=== PATIENT | male | born 1990 | race Caucasian/White ===

== ENCOUNTER 2016-11-06 20:01 | Emergency (ER) | payer SELFPAY ==
[~2016-11-06] VITALS: Ht 167.6 cm; Wt 82.0 kg
[2016-11-06 22:03] VITALS: BP 117/70
== END 2016-11-07 00:20 | disposition left against medical advice (07) ==
LOC: ER 20:01
DX: Z53.21 Procedure and treatment not carried out due to patient leaving prior to being seen by health care provider (principal)

== ENCOUNTER 2019-02-13 14:59 | Emergency (ER) | payer SELFPAY ==
[~2019-02-13] VITALS: Ht 170.2 cm; Wt 75.0 kg
[2019-02-13] MEDS ORDERED: SODIUM CHLORIDE 0.9% 1,000 ML IV ONE (15:55)
[2019-02-13] MEDS ORDERED: ONDANSETRON HCL 4MG/2ML INJ IV ONE (16:00)
[2019-02-13] MEDS ORDERED: MORPHINE SULFATE 4 MG/ML CPJ (NOT FOR IM USE) IV ONE (16:00)
[2019-02-13] MEDS ORDERED: VANCOMYCIN 1 G PREMIX 200 ML IV ONE (16:00)
[2019-02-13] MEDS ORDERED: BACITRACIN ZINC OINT UDPKT TOP ONE (16:00)
[2019-02-13] MEDS ORDERED: TETANUS, DIPHTHERIA, PERTUSSIS VAC/PF 0.5ML (>7YR OLD) IM ONE (16:00)
[2019-02-13] MEDS ORDERED: PIPERACILLIN/TAZ 3.375G PREMIX 50 ML IV ONE (16:00)
[2019-02-13] MEDS ORDERED: KETOROLAC 30MG/ML VIAL IV ONE (16:00)
[2019-02-13] MEDS ORDERED: LIDOCAINE 1%/EPI 1:100,000 10 ML VIAL IJ ONE (16:00)
[2019-02-13 16:11] LABS: BASOPHILS % 0.4 % (0.0-2.0); EOSINOPHILS % 0.9 % (0.0-5.0); HEMATOCRIT. 45.2 % (42.0-52.0); HEMOGLOBIN. 15.3 g/dL (14.0-18.0); MEAN CORPUSCULAR HEMOGLOBIN 31.9 pg (28.0-32.0); MEAN CORPUSCULAR VOLUME 94.1 fL (80.0-94.0); MEAN PLATELET VOLUME 8.7 fl (7.4-10.4); MONOCYTES % 10.4 % (2.0-8.0); NEUTROPHILS % 78.3 % (40.0-76.0); PLATELET 219 x1000/uL (130-400); RED CELL DISTRIBUTION WIDTH 13.4 % (11.6-14.6)
[2019-02-13 16:12] LABS: CHLORIDE 105 mEq/L (98-107)
[2019-02-13] MEDS ORDERED: LIDOCAINE HCL/EPINEPHRINE 1%-EPI 1:100,000 20 ML VIAL INFIL NR (16:15)
[2019-02-13] MEDS: SODIUM CHLORIDE 0.9% 1000ML BAG (SEPSIS BOLUS) IV ONE ×2 (16:21→16:49)
[2019-02-13] MEDS ORDERED: PIPERACILLIN/TAZOBACTAM 3.375 G in DEXT 5% WATER 100 ML IV NR (16:45)
[2019-02-13 22:20] VITALS: BP 112/69
== END 2019-02-13 22:21 | disposition home or self-care (01) ==
LOC: ER 14:59
DX: L02.415 Cutaneous abscess of right lower limb (principal); L03.115 Cellulitis of right lower limb
CPT/HCPCS: 10060; 36415; 80053; 85025; 87040; 87086; 90471; 90715; 93005; 96365; 96366; 96368; 96375; 99284; J1885; J2270; J2543; J3370; J3490; J7030; J7060; Z7610

== ENCOUNTER 2019-03-21 22:39 | Emergency (ER) | payer SELFPAY ==
[~2019-03-21] VITALS: Ht 167.6 cm; Wt 78.0 kg
[2019-03-22 01:30] VITALS: BP 129/72
[2019-03-22] MEDS ORDERED: CLINDAMYCIN 600 MG in SODIUM CHLORIDE 0.9% 50 ML IV NR (01:30)
[2019-03-22] MEDS ORDERED: CLINDAMYCIN 600 MG in DEXTROSE 5% WATER 50 ML IV ONE (01:30)
[2019-03-22] MEDS ORDERED: BACITRACIN 15GM TUBE TOP ONE (01:30)
[2019-03-22 01:37] LABS: CHLORIDE 106 mEq/L (98-107)
[2019-03-22 01:38] LABS: BASOPHILS % 0.7 % (0.0-2.0); EOSINOPHILS % 2.1 % (0.0-5.0); HEMATOCRIT. 44.4 % (42.0-52.0); HEMOGLOBIN. 15.1 g/dL (14.0-18.0); LYMPHOCYTES % 9.7 % (20.0-50.0); MEAN CORPUSCULAR HEMOGLOBIN 31.2 pg (28.0-32.0); MEAN CORPUSCULAR VOLUME 92.1 fL (80.0-94.0); MEAN PLATELET VOLUME 8.1 fl (7.4-10.4); MONOCYTES % 8.6 % (2.0-8.0); NEUTROPHILS % 78.9 % (40.0-76.0); PLATELET 285 x1000/uL (130-400); RED BLOOD CELL COUNT 4.82 mill/uL (4.7-6.1); RED CELL DISTRIBUTION WIDTH 13.2 % (11.6-14.6)
[2019-03-22 04:09] LABS: CLARITY URINE CLEAR (CLEAR); COLOR URINE YELLOW (YELLOW); KETONES URINE NEGATIVE (NEGATIVE); LEUKOCYTE ESTERASE URINE NEGATIVE (NEGATIVE); NITRITE URINE NEGATIVE (NEGATIVE); OCCULT BLOOD URINE NEGATIVE (NEGATIVE); PH URINE 5.5 (4.5-8.0); PROTEIN URINE NEGATIVE (NEGATIVE); SPECIFIC GRAVITY URINE 1.026 (1.005-1.030)
== END 2019-03-22 03:04 | disposition home or self-care (01) ==
LOC: ER 22:39
DX: L03.116 Cellulitis of left lower limb (principal); L03.115 Cellulitis of right lower limb; F17.200 Nicotine dependence, unspecified, uncomplicated
CPT/HCPCS: 36415; 80048; 81003; 85025; 87040; 87086; 96365; 99283; A4217; J3490; Z7610; J7060

== ENCOUNTER 2020-02-28 08:45 | Emergency (ER) | payer MEDICAID ==
[~2020-02-28] VITALS: Ht 167.6 cm; Wt 75.0 kg
[2020-02-28 09:11] VITALS: BP 127/82
[2020-02-28] MEDS ORDERED: LIDOCAINE HCL/PF 1% 10 MG/ML 5ML VIAL IJ ONE (10:15)
[2020-02-28] MEDS ORDERED: ACETAMINOPHEN 325MG TABLET PO ONE (10:15)
== END 2020-02-28 10:52 | disposition home or self-care (01) ==
LOC: ER 08:45
DX: N48.22 Cellulitis of corpus cavernosum and penis (principal); N48.21 Abscess of corpus cavernosum and penis; F12.10 Cannabis abuse, uncomplicated; F15.10 Other stimulant abuse, uncomplicated
CPT/HCPCS: 10060; 99284; J3490; Z7610

== ENCOUNTER 2021-11-17 05:14 | Emergency (ER) | payer MEDICAID ==
[~2021-11-17] VITALS: Ht 167.6 cm; Wt 91.0 kg
[2021-11-17 05:27] VITALS: BP 145/83
[2021-11-17] MEDS ORDERED: LIDOCAINE HCL/PF 1% 10 MG/ML 5ML VIAL INFIL ONE (06:15)
[2021-11-17] MEDS ORDERED: TETANUS, DIPHTHERIA, PERTUSSIS VAC/PF 0.5ML (>10YR OLD) IM ONE (06:15)
[2021-11-17] MEDS ORDERED: TOPUD PO (06:54)
== END 2021-11-17 07:35 | disposition home or self-care (01) ==
LOC: ER 05:14
DX: S61.412A Laceration without foreign body of left hand, initial encounter (principal); Y28.9XXA Contact with unspecified sharp object, undetermined intent, initial encounter; Y93.89 Activity, other specified; Y92.9 Unspecified place or not applicable
CPT/HCPCS: 12004; 90471; 90715; 99283; J3490; A4315

== ENCOUNTER 2021-11-23 12:38 | Emergency (ER) | payer MEDICAID ==
[~2021-11-23] VITALS: Ht 170.2 cm; Wt 74.0 kg
[~2021-11-23 12:38] MED LIST: TOPUD PO
[2021-11-23 13:00] VITALS: BP 133/82
[2021-11-23] MEDS ORDERED: CEPH500C2 MT (13:59)
[2021-11-23] MEDS ORDERED: CEPHALEXIN 250MG CAPSULE PO ONE (14:00)
== END 2021-11-23 14:25 | disposition home or self-care (01) ==
LOC: ER 12:38
DX: L03.114 Cellulitis of left upper limb (principal); S60.562A Insect bite (nonvenomous) of left hand, initial encounter; W57.XXXA Bitten or stung by nonvenomous insect and other nonvenomous arthropods, initial encounter; Y93.89 Activity, other specified; Y92.89 Other specified places as the place of occurrence of the external cause; Y99.9 Unspecified external cause status; Z59.00 Homelessness unspecified
CPT/HCPCS: 99283